=== PATIENT | female | born 2000 | race Caucasian/White ===

== ENCOUNTER 2020-02-03 15:53 | Emergency (ER) | payer BC ==
[~2020-02-03] VITALS: Ht 175.3 cm; Wt 78.6 kg
[~2020-02-03 15:53] MED LIST: CYCL2DRO EACHEYE; HYDR-4383 PO; PRED1DRO LEFTEYE
[2020-02-03 16:07] VITALS: BP 125/82
[2020-02-03] MEDS ORDERED: IBUP-1986 PO (16:24)
[2020-02-03] MEDS ORDERED: MEDR10TA PO (16:24)
[2020-02-03] MEDS ORDERED: ibuprofen tablet 400 MG TABLET PO ONE (16:25)
== END 2020-02-03 16:37 | disposition home or self-care (01) ==
LOC: ER 15:54
DX: N93.9 Abnormal uterine and vaginal bleeding, unspecified (principal); Z79.899 Other long term (current) drug therapy
CPT/HCPCS: 99283